=== PATIENT | female | born 1950 | race Caucasian/White ===

== ENCOUNTER 2017-06-23 05:57 | Inpatient (IN) | payer OTHER ==
[2017-06-13 12:56] VITALS: BMI 30.7
[2017-06-23] MEDS ORDERED: PANTOPRAZOLE 40 MG TABLET (FP) PO ONE (06:43)
[2017-06-23] MEDS ORDERED: CELECOXIB 200 MG CAPSULE PO ONE (06:45)
[2017-06-23] MEDS ORDERED: ROPIVICAINE 0.2%/MORPH PF/KETOROLAC - 51ML DISP.SYRINGE IA ONE (06:45)
[2017-06-23] MEDS ORDERED: TRANEXAMIC ACID 1000 MG/10 ML VIAL IVPUSH ONE (06:45)
[2017-06-23] MEDS ORDERED: oxyCODONE HCL 10 MG SUSTAINED ACTING TABLET PO ONE (06:45)
[2017-06-23] MEDS ORDERED: GABAPENTIN 300 MG CAPSULE (FP) PO ONE (06:45)
[2017-06-23] MEDS ORDERED: CEFAZOLIN 1 GM/D5W 50 ML IVPB ONE (06:45)
[2017-06-23] MEDS ORDERED: ceFAZolin SODIUM 1 GM VIAL ONE ×2 (07:12→07:21)
[2017-06-23] MEDS ORDERED: VANCOMYCIN 1,000 MG VIAL (RESTRICTED TO ID ONLY) ONE (07:12)
[2017-06-23] MEDS ORDERED: PROPOFOL 20 ML ONE (07:21)
[2017-06-23] MEDS ORDERED: SUCCINYLCHOLINE CHLORIDE 200 MG/10 ML VIAL ONE (07:22)
[2017-06-23] MEDS ORDERED: MIDAZOLAM HCL 2 MG/2 ML SINGLE DOSE VIAL ONE ×3 (07:22→10:03)
[2017-06-23] MEDS ORDERED: DEXAMETHASONE SOD PHOSPHATE 4 MG/1 ML VIAL ONE (07:22)
[2017-06-23] MEDS ORDERED: ONDANSETRON 4 MG/2 ML VIAL ONE (07:22)
[2017-06-23] MEDS ORDERED: KETOROLAC TROMETHAMINE 30 MG/1 ML VIAL ONE (07:22)
[2017-06-23] MEDS ORDERED: DEXAMETHASONE SOD PHOSPHATE/PF 10 MG/ML SDV ONE (07:26)
[2017-06-23] MEDS ORDERED: ROPIVACAINE HCL 0.5% 30ML VIAL ONE (07:26)
--- NOTE | 2017-06-23 07:40 | HP ---
Admitting History and Physical - Admission Chief Complaint: Left knee osteoarthritis x years History of Present Illness: 66 year old female presenting in regard to her left knee. Longstanding history of left knee osteoarthritis. Patient complains of pain, limited ROM, difficult ambulating and difficulty with ADLs. Patient has failed conservative treatment including PO medication, activity modification, exercise program and injections. At this point, patient would like to proceed with a left total knee arthroplasty. History Source: Patient - Past Medical History Cardiovascular: Yes: HTN Endocrine: Yes: Hypothyroidism - Past Surgical History Additional Past Surgical History: See written H&P - Smoking History Smoking history: Never smoked Have you smoked in the past 12 months: No - Alcohol/Substance Use Hx Alcohol Use: No Home Medications - Allergies Allergies/Adverse Reactions: Allergies Allergy/AdvReac Type Severity Reaction Status Date / Time No Known Allergies Allergy Verified 06/13/17 17:39 - Home Medications Home Medications: Ambulatory Orders Hydrochlorothiazide 25 mg PO DAILY 06/13/17 Levothyroxine [Synthroid -] 100 mcg PO DAILY 06/13/17 Review of Systems - Review of Systems Musculoskeletal: reports: Crepitus (Left knee), Decreased ROM (Left knee), Joint Pain (Left knee), Joint Swelling (Left knee) Physical Examination Vital Signs: Vital Signs Temperature 98 F 06/23/17 07:09 Pulse Rate 67 06/23/17 07:09 Respiratory Rate 16 06/23/17 07:09 Blood Pressure 146/78 06/23/17 07:09 O2 Sat by Pulse Oximetry (%) 98 06/23/17 07:11 Constitutional: Yes: Well Nourished Eyes: Yes: Conjunctiva Clear HENT: Yes: Atraumatic, Normocephalic Neck: Yes: Supple Cardiovascular: Yes: Regular Rate and Rhythm Respiratory: Yes: Regular Gastrointestinal: Yes: Soft ...Rectal Exam: Yes: Deferred Musculoskeletal: Yes: Joint Stiffness (Left knee), Joint Swelling (Left knee) Assessment/Plan 66 year old female with longstanding left knee osteoarthritis. Patient complains of pain, limited ROM, difficulty ambulating and difficulty with ADLs. Patient has failed conservative treatment options. Proceed with a left total knee arthroplasty.
[2017-06-23] MEDS ORDERED: BUPIVACAINE HCL/PF 0.5% (5MG/ML) 10 ML VIAL ONE (08:10)
[2017-06-23] MEDS ORDERED: TRANEXAMIC ACID 1000 MG/10 ML VIAL ONE (08:23)
[2017-06-23] MEDS ORDERED: oxyCODONE HCL 5 MG TABLET PO PRN ×2 (11:28)
[2017-06-23] MEDS ORDERED: ONDANSETRON 4 MG/2 ML VIAL IVPUSH PRN (11:28)
--- NOTE | 2017-06-23 11:28 | OP ---
Operative Note - Note: Operative Date: 06/23/17 Pre-Operative Diagnosis: left knee OA Operation: left tka Post-Operative Diagnosis: Same as Pre-op Surgeon: Curry Mas Failure Analysis Technician: Marilou Noriega Anesthesia: Spinal Estimated Blood Loss (mls): 250
[2017-06-23] MEDS ORDERED: MAG HYDROX/AL HYDROX/SIMETH 30 ML UNIT-DOSE CUP PO PRN (11:29)
[2017-06-23] MEDS ORDERED: MAGNESIUM HYDROX 2400MG/30ML ORAL SUSPENSION 30 ML CUP PO PRN (11:29)
[2017-06-23] MEDS ORDERED: ONDANSETRON 4 MG/2 ML VIAL IVPB PRN (11:29)
[2017-06-23] MEDS ORDERED: LACTATED RINGERS SOLUTION 1,000 ML IV SCH (11:30)
[2017-06-23] MEDS: ACETAMINOPHEN 1000 MG/100 ML VIAL (NON FORMULARY) IVPB ONE ×2 (11:44→19:17)
[2017-06-23] MEDS: KETOROLAC TROMETHAMINE 30 MG/1 ML VIAL IVPUSH SCH ×3 (11:44→19:17)
[2017-06-23] MEDS: traMADol HCL 50 MG TABLET PO SCH ×3 (11:44→19:22)
[2017-06-23] MEDS ORDERED: ONDANSETRON 4 MG/2 ML VIAL IVPUSH ONE (11:55)
[2017-06-23] MEDS: ACETAMINOPHEN 325 MG TABLET (FP) PO SCH (18:37)
[2017-06-23] MEDS: CEFAZOLIN 1 GM/D5W 50 ML IVPB SCH (18:37)
[2017-06-23] MEDS: LACTATED RINGERS SOLUTION 1,000 ML IV SCH (19:16)
[2017-06-23] MEDS: CELECOXIB 200 MG CAPSULE PO SCH (22:07)
[2017-06-23] MEDS: GABAPENTIN 300 MG CAPSULE (FP) PO SCH (22:07)
[2017-06-23] MEDS: ASCORBIC ACID 500 MG TABLET (FP) PO SCH (22:07)
[2017-06-23] MEDS: SENNOSIDES/DOCUSATE COMBO (SENNA PLUS) TABLET (UD) PO SCH (22:07)
[2017-06-24] MEDS: ACETAMINOPHEN 325 MG TABLET (FP) PO SCH ×5 (00:06→23:58)
[2017-06-24] MEDS: KETOROLAC TROMETHAMINE 30 MG/1 ML VIAL IVPUSH SCH ×2 (00:06→06:03)
[2017-06-24] MEDS: traMADol HCL 50 MG TABLET PO SCH ×5 (00:06→18:10)
[2017-06-24] MEDS: CEFAZOLIN 1 GM/D5W 50 ML IVPB SCH (03:18)
[2017-06-24] MEDS: LEVOTHYROXINE NA 100 MCG TABLET (FP) PO SCH (06:02)
[2017-06-24] MEDS: ASPIRIN 325 MG TABLET PO SCH (08:27)
[2017-06-24 08:41] LABS: MCHC 33.8 g/dl (32.0-36.0); MEAN CELL VOLUME 88.5 fl (80-96); PLATELET COUNT 174 K/MM3 (134-434); WHITE BLOOD COUNT 9.1 K/mm3 (4.0-10.8)
[2017-06-24 09:10] LABS: ANION GAP 6 (8-16); CALCIUM 8.8 mg/dl (8.4-10.2); CO2 30 mmol/L (22-28); CREATININE 1.3 mg/dl (0.6-1.3); GLUCOSE,RANDOM 130 mg/dl (74-106)
[2017-06-24] MEDS: PANTOPRAZOLE 40 MG TABLET (FP) PO SCH (09:20)
[2017-06-24] MEDS: ASCORBIC ACID 500 MG TABLET (FP) PO SCH ×2 (09:20→21:24)
[2017-06-24] MEDS: CELECOXIB 200 MG CAPSULE PO SCH ×2 (09:20→21:24)
[2017-06-24] MEDS: MULTIVITAMINS (DAILY MVI) TABLET (FP) PO SCH (09:20)
[2017-06-24] MEDS: SENNOSIDES/DOCUSATE COMBO (SENNA PLUS) TABLET (UD) PO SCH ×2 (09:21→21:24)
[2017-06-24] MEDS: HYDROCHLOROTHIAZIDE 25 MG TABLET (FP) PO SCH (09:21)
[2017-06-24] MEDS: GABAPENTIN 300 MG CAPSULE (FP) PO SCH ×2 (09:21→21:24)
--- NOTE | 2017-06-24 09:23 | PN ---
Progress Note (short form) - Note Progress Note: ANESTHESIOLOGY POSTOP: 66 yo female, POD #1 s/p Left TKA. Patient has recovered well from anesthesia. She has no pain. She is actively participating in PT. She is tolerating PO. Encouraged her to continue PT and ambulation as directed.
[2017-06-24] MEDS: LACTATED RINGERS SOLUTION 1,000 ML IV SCH (11:49)
--- NOTE | 2017-06-24 19:22 | PN ---
Progress Note (short form) - Note Progress Note: Pt seen and examined. Doing very well. AVSS Selected Entries 06/24/17 06/24/17 06/24/17 06:07 07:15 14:18 Temperature 98.8 F Pulse Rate 76 Respiratory 16 Rate Blood Pressure 105/47 O2 Sat by Pulse 97 92 L Oximetry (%) Oxygen Delivery Room Air Room Air Method Laboratory Tests 06/24/17 06/24/17 07:30 07:30 WBC 9.1 Hgb 11.7 Hct 34.6 Plt Count 174 Sodium 137 Potassium 4.4 Chloride 101 Carbon Dioxide 30 H Anion Gap 6 L BUN 31 H Creatinine 1.3 Random Glucose 130 H Calcium 8.8 Gen: NAD LLE: c/d/i, NVID A/P 66yo female POD#1 s/p L TKA 1. PT/OOB 2. D/C in AM after PT; f/u in office in 10-14 days.
--- NOTE | 2017-06-24 19:27 | DS ---
Physical Examination Vital Signs: Vital Signs Temperature 98.8 F 06/24/17 14:18 Pulse Rate 76 06/24/17 14:18 Respiratory Rate 16 06/24/17 14:18 Blood Pressure 105/47 06/24/17 14:18 O2 Sat by Pulse Oximetry (%) 92 L 06/24/17 14:18 Labs: CBC, BMP 06/24/17 07:30 06/24/17 07:30 Discharge Summary Reason For Visit: LEFT KNEE OSTEOARTHRITIS Current Active Problems Osteoarthritis of left knee (Acute) Procedures: Principal: left TKA Hospital Course: Admitted for elective surgery. Procedure performed without complications. Pt received postoperative antibiotic prophylaxis and DVT ppx. Ambulated with physical therapy. Stable for discharge home with outpatient followup. Condition: Stable - Instructions Diet, Activity, Other Instructions: Dr. Mas - Knee Replacement Instructions Keep the Aquacel dressing on until removed by Dr. Mas in 10-14 days - it is antibacterial and waterproof and you can shower with it on. Call the office for a follow-up appointment with Dr. Mas in 10-14 days. [phone] Take one Aspirin 325mg daily for 6 weeks to prevent blood clots in your legs. Take one Pantoprazole 40mg daily for 6 weeks to protect against heartburn and ulcers. Take Celebrex 200mg twice daily for 30 days to reduce swelling and inflammation. Take a multivitamin, extra vitamin c supplement, and stool softener daily. For pain: The nerve block injection performed before surgery lasts for about 3 days. When this wears off Tuesday the pain will increase. *Mild pain (1-3/10): Take 1 Tramadol tablet every 4 hours as needed. Moderate pain (4-6/10): Take 1 Tramadol tablet and 1 Percocet tablet every 4 hours as needed. Severe pain (7-10/10): Take 1 Tramadol tablet and 2 Percocet tablets every 4 hours as needed. Activity: You can put as much weight on the operative leg as you want. Right after you get home, there will be a physical therapist coming to your house to help you walk around and bend/straighten your knee. After your follow-up appointment, you will be sent for more intensive outpatient physical therapy which will include machines and equipment that the home therapist cannot bring to your house. Always use a walker or cane for balance and to prevent falls. Disposition: [facility]/HOME HEALTH CARE - Home Medications Comprehensive Discharge Medication List: Ambulatory Orders Hydrochlorothiazide 25 mg PO DAILY 06/13/17 Levothyroxine [Synthroid -] 100 mcg PO DAILY 06/13/17 Ascorbic Acid [Vitamin C -] 500 mg PO BID tablet 06/24/17 Aspirin [ASA -] 325 mg PO DAILY@0800 tablet 06/24/17 Celecoxib [CeleBREX -] 200 mg PO BID #60 tab 06/24/17 Multivitamins [Multivit ([facility] Formul[facility])] 1 tab PO DAILY tab 06/24/17 Oxycodone HCl/Acetaminophen [Percocet 5-325 mg Tablet] 1 - 2 tab PO Q4H PRN #60 tablet MDD 8 06/24/17 Pantoprazole Sodium [Protonix -] 40 mg PO DAILY #40 tab 06/24/17 Sennosides/Docusate Sodium [Pericolace -] 2 tablet PO BID tablet 06/24/17 Tramadol HCl [Ultram -] 50 mg PO Q4H PRN #90 tablet MDD 6 06/24/17
[2017-06-25] MEDS: traMADol HCL 50 MG TABLET PO SCH ×2 (01:32→06:25)
[2017-06-25] MEDS: LEVOTHYROXINE NA 100 MCG TABLET (FP) PO SCH (06:26)
[2017-06-25] MEDS: ACETAMINOPHEN 325 MG TABLET (FP) PO SCH (06:26)
[2017-06-25 06:54] VITALS: BP 109/55; PULSE 83; TEMP 99.4
[2017-06-25 07:36] LABS: MCH 30.4 pg (25.7-33.7); MCHC 34.4 g/dl (32.0-36.0); MEAN CELL VOLUME 88.3 fl (80-96); MEAN PLT VOLUME 8.8 fl (7.5-11.1); PLATELET COUNT 156 K/MM3 (134-434); RDW 13.1 % (11.6-15.6); WHITE BLOOD COUNT 6.6 K/mm3 (4.0-10.8)
[2017-06-25 08:02] LABS: ANION GAP 5 (8-16); CALCIUM 8.6 mg/dl (8.4-10.2); CO2 30 mmol/L (22-28); GLUCOSE,RANDOM 179 mg/dl (74-106)
[2017-06-25] MEDS: ASPIRIN 325 MG TABLET PO SCH (08:08)
[2017-06-25] MEDS: HYDROCHLOROTHIAZIDE 25 MG TABLET (FP) PO SCH (09:27)
[2017-06-25] MEDS: CELECOXIB 200 MG CAPSULE PO SCH (09:27)
[2017-06-25] MEDS: GABAPENTIN 300 MG CAPSULE (FP) PO SCH (09:28)
[2017-06-25] MEDS: SENNOSIDES/DOCUSATE COMBO (SENNA PLUS) TABLET (UD) PO SCH (09:28)
[2017-06-25] MEDS: MULTIVITAMINS (DAILY MVI) TABLET (FP) PO SCH (09:28)
[2017-06-25] MEDS: PANTOPRAZOLE 40 MG TABLET (FP) PO SCH (09:28)
[2017-06-25] MEDS: ASCORBIC ACID 500 MG TABLET (FP) PO SCH (09:29)
--- NOTE | 2017-06-27 14:04 | PATH ---
Surgical Pathology Report Patient Name: MARYLOU GEORGE Med. Rec. #: [id number] /Age/Gender: 1950 (Age: 66) / F Account: [id number] Location: [facility] MED-SURG Taken: 06/23/2017 Received: 06/23/2017 Reported: 06/27/2017 Physicians: Curry Mas M.D. Specimen(s) Received BONE LEFT KNEE Clinical History Osteoarthritis left knee Final Diagnosis BONE AND SOFT TISSUE, LEFT KNEE, REPLACEMENT: DEGENERATIVE JOINT DISEASE. Electronically Signed Vivek Beatty M.D. Gross Description The specimen is received in formalin, labeled "bone left knee bone" and consists of multiple irregular portions of bone from a knee joint admixed with irregular portions of buchanan-yellow adipose tissue, synovial tissue and fibrocartilage. The specimen measures 9.0 x 8.0 x 2.0 cm. in aggregate. The tibial plateau and portions of the femoral condyles are identified. They show buchanan-carrera to light yellow, eroded and granular articular surfaces. The cut surfaces are light yellow and show hard trabecular bone. [employer] sections are submitted in one cassette after decalcification. AF/06/24/2017 final/06/24/2017
== END 2017-06-25 12:45 | disposition home health service (06) | DRG 302 ==
LOC: FM/S 05:57
PROVIDERS: ADMIT Student in an Organized Health Care Education/Training Program; ATTEND Student in an Organized Health Care Education/Training Program
PROC: 0SRD0J9 Replacement of Left Knee Joint with Synthetic Substitute, Cemented, Open Approach (ICD-10-PCS; principal; 2017-06-23 08:41)
DX: M17.12 Unilateral primary osteoarthritis, left knee (principal); I10 Essential (primary) hypertension; E78.5 Hyperlipidemia, unspecified
CPT/HCPCS: 36415; 73560-TC-LT; 80048; 85027; 88304-TC; 88311-TC; 94010; 94760; 97010-GP; 97116-GP; 97161-GP